=== PATIENT | female | born 1935 | race Caucasian/White ===

== ENCOUNTER 2016-08-23 15:21 | Emergency (ER) | payer OTHER, BC ==
[~2016-08-23] VITALS: Ht 162.6 cm; Wt 79.0 kg
[2016-08-23 15:30] VITALS: TEMP 36.6; Ht 162.6 cm; Wt 79.0 kg
[2016-08-23] MEDS ORDERED: SODIUM CHLORIDE 0.9% 500ML 500 ML IV STA (15:59)
[2016-08-23] MEDS ORDERED: PROCHLORPERAZINE 5 MG/ML 2 ML VIAL IV STA ×2 (15:59→17:00)
[2016-08-23] MEDS ORDERED: HYDROCODONE/ACETAMOPHEN 5/325MG TAB PO STA (15:59)
[2016-08-23] MEDS ORDERED: DiphenhydrAMINE HCL 50 MG/ML VIAL IV STA (15:59)
[2016-08-23] MEDS ORDERED: NORCO 5/325MG HOME PACK PO ONE (16:00)
--- NOTE | 2016-08-23 16:21 | EMERGENCY ROOM VISIT NOTE ---
History Report prepared by Kyrie: Lamont Schwarz Under the Supervision of: Dr. Marlo Herrmann M.D. First contact with patient: 15:52 Chief Complaint: HEADACHE Stated Complaint: SEVERE MIGRAINE, VOMITING, DIZZY History of Present Illness The patient is a 80 year old female who presents to the Emergency Room with complaints of a constant headache starting this morning. The patient's daughter states that the patient has a headache, and she occasionally has migraines, however this is the second one since April when she started gabapentin. The daughter states that they wet to [facility], and she was given Benadryl and Toradol. The patient is additionally complaining of vomiting, weakness, and chills. The patient denies any rash, neck stiffness, chest pain or shortness of breath. Source of History: patient, family Onset: this morning Position: head Quality: other (migraine) Timing: constant Associated Symptoms: + chills, + vomiting, + weakness Review of Systems See HPI for pertinent positives & negatives. A total of 10 systems reviewed and were otherwise negative. Past Medical & Surgical Medical Problems: (1) Migraine Social History Smoking Status: Never Smoker Marital Status: Occupation Status: retired Current/Historical Medications Scheduled [Gabapentin], 1 DOSE PO DIRECTED Allergies Coded Allergies: No Known Allergies (Unverified , 08/23/16) Physical Exam Vital Signs Date Time Temp Pulse Resp B/P Pulse Ox O2 Delivery O2 Flow Rate FiO2 08/23/16 17:55 78 18 110/70 98 08/23/16 15:30 36.6 81 20 178/78 95 Room Air Physical Exam GENERAL: Patient is well appearing and in mild distress. HEAD: No acute trauma, normocephalic atraumatic ENT: Mucous membranes moist, no nasal congestion. EYES: Equal/Reactive Bilaterally, No scleral icterus, Normal ROM NECK: No nuchal rigidity, no meningismus, trachea is midline, full ROM LUNGS: No dyspnea. Clear to auscultation and equal bilaterally. No wheeze, no rhonchi. HEART: Regular rate and rhythm. No murmurs, rubs, gallops appreciated. ABDOMEN: Soft, nontender, bowel sounds positive, no masses appreciated, no peritonitis. BACK: No midline tenderness, no CVA tenderness EXTREMITIES: Normal motion all extremities, no cyanosis, no edema. NEUROLOGIC: Awake, Alert, Oriented, no acute motor or sensory deficits, no focal weakness, cranial nerves grossly intact. SKIN: No rash, no jaundice, no diaphoresis. Medical Decision & Procedures Medications Administered Medications (Trade) Dose Ordered Sig/Tay Route Start Time Stop Time Status Last Admin Dose Admin Sodium Chloride (Nss 500ml) 500 ml @ 999 mls/hr Q31M STAT IV 08/23/16 15:59 08/23/16 16:29 DC 08/23/16 15:59 999 MLS/HR Diphenhydramine HCl (Benadryl Inj) 50 mg NOW STAT IV 08/23/16 15:59 08/23/16 16:01 DC 08/23/16 16:10 50 MG Prochlorperazine Edisylate (Compazine Inj) 5 mg NOW STAT IV 08/23/16 15:59 08/23/16 16:01 DC 08/23/16 16:09 5 MG Acetaminophen/ Hydrocodone Bitart ([place] 5/325 Tab) 1 tab NOW STAT PO 08/23/16 15:59 08/23/16 16:01 DC 08/23/16 16:09 1 TAB Acetaminophen/ Hydrocodone Bitart ([place] 5/325mg Home Pack) 1 homepack UD ONCE PO 08/23/16 16:00 08/23/16 16:01 DC 08/23/16 16:44 1 HOMEPACK Prochlorperazine Edisylate (Compazine Inj) 5 mg NOW STAT IV 08/23/16 17:00 08/23/16 17:02 DC 08/23/16 17:40 5 MG Morphine Sulfate (MoRPHine SULFATE INJ) 3 mg NOW STAT IV 08/23/16 17:00 08/23/16 17:02 DC 08/23/16 17:39 3 MG ED Course 1552: The patient was evaluated in room A12. A complete history and physical exam was performed. 1559: [place] 5/325 1 Tab PO, Compazine Inj 5mg IV, Benadryl Inj 50mg IV, Sodium Chloride 500 ml @ 999 mls/hr 1600: [place]ds[place] 5/325mg 1 Home Pack PO 1659: I reassessed the patient, and she states that her headache is half gone, and she wants more pain medication. 1700: Morphine Sulfate 3mg IV, Compazine Inj 5mg IV 1743: Reevaluated the patient. Discussed results and discharge instructions: She verbalized understanding and agreement. The patient is ready for discharge. Medical Decision Differential: Headache, Migraine, Cluster Headache, Seizure, Meningitis, Sinusitis, CO exposure, ICH/SAH, Infectious, Tumor, Sinus Thrombosis, Arterial Dissection, amongst other pathologies entertained. 80 yr [place] with long history of migraines which she and daughter confirm occurs quite regularly (though improved since gabapentin starting). She notes her headache is stable and same as always. Given above with improvement and after second dose of medication notes she is feeling much better and wishes to go home. Both her and daughter feel comfortable going home. They note extensive previous testing for this and do not wish any further testing. Aware RTED at any time if worsening or other concerns. Impression Primary Impression: Headache Additional Impression: Migraine Scribe Attestation The scribe's documentation has been prepared under my direction and personally reviewed by me in its entirety. I confirm that the note above accurately reflects all work, treatment, procedures, and medical decision making performed by me. Departure Information Dispostion Home / Self-Care Forms HOME CARE DOCUMENTATION FORM, IMPORTANT VISIT INFORMATION Patient Instructions ED Headache Migraine, My [facility] Additional Instructions You have received a narcotic pain medication. These medications may cause drowsiness and should not be used with other sedative medications. Do not drive , drink alcohol, perform dangerous activities, nor make important decisions after taking these medications. termite technician use or inappropriate use may lead to addiction. Problem Qualifiers Primary Impression: Headache Headache type: unspecified Headache chronicity pattern: acute headache Intractability: not intractable Qualified Codes: R51 - Headache Additional Impression: Migraine Migraine type: unspecified Status migrainosus presence: without status migrainosus Intractability: not intractable Qualified Codes: G43.909 - Migraine, unspecified, not intractable, without status migrainosus
[2016-08-23] MEDS ORDERED: MoRPHine SULFATE 4 MG/ML 1 ML CARP\\VIAL IV STA (17:00)
[2016-08-23] MEDS ORDERED: GABAPENTIN PO (17:36)
[2016-08-23 17:55] VITALS: BP 110/70; PULSE 78; O2SAT 98
== END 2016-08-23 17:56 | disposition home or self-care (01) ==
LOC: C.EDB 15:23 → C.EDA 17:56
DX: R51 Headache (principal); G43.909 Migraine, unspecified, not intractable, without status migrainosus